=== PATIENT | male | born 1975 | race African-American/Black ===

== ENCOUNTER 2017-10-31 21:15 | Emergency (ER) | payer MEDICAID ==
[~2017-10-31] VITALS: Ht 167.6 cm; Wt 81.0 kg
[2017-11-01] MEDS ORDERED: KETOROLAC 60MG/2ML VIAL IM ONE (03:45)
[2017-11-01 05:43] VITALS: BP 120/59
== END 2017-11-01 06:02 | disposition home or self-care (01) ==
LOC: ER 21:40
DX: S86.811A Strain of other muscle(s) and tendon(s) at lower leg level, right leg, initial encounter (principal); R26.2 Difficulty in walking, not elsewhere classified; X58.XXXA Exposure to other specified factors, initial encounter; Y93.9 Activity, unspecified; Y92.9 Unspecified place or not applicable; F17.210 Nicotine dependence, cigarettes, uncomplicated; F12.90 Cannabis use, unspecified, uncomplicated
CPT/HCPCS: 73562; 96372; 99284; J1885